=== PATIENT | female | born 1960 | race Caucasian/White ===

== ENCOUNTER → 2019-01-16 | Outpatient (CLI) | payer OTHER ==
--- NOTE | 2019-01-16 16:06 | RAD ---
Indication: Postmenopausal screening for osteoporosis. Follow-up study. COMPARISON: March 16, 2010. Bone Density: -BMD: (g/cm2) - AP Spine Total (L1-L4).......... 0.660. - Total right Hip................. 0.773. T-Score: - AP Spine Total (L1-L4)......... -4.3. - Total right Hip................. -1.9. Z-Score: - AP Spine Total (L1-L4).......... -2.9. - Total right Hip................. -0.8. World Health Organization criteria for BMD interpretation classify patients as Normal (T-score at or above -1.0), Osteopenic (T-score between -1.0 and -2.5), or Osteoporotic (T-score at or below -2.5). Impression: 1. AP Spine Total L1-L4--- osteoporosis. Since the previous study, there has been a decrease in the BMD of approximately 22%. 2. Total left Hip--- normal. Since the previous study, there has been a decrease in the BMD of approximately 12%. Electronically signed by: Paddy Cramer MD (01/16/2019 4:03 PM) [email or web address]
== END | disposition home or self-care (01) ==
LOC: DXRAD 11:23
DX: M81.0 Age-related osteoporosis without current pathological fracture (principal); N95.9 Unspecified menopausal and perimenopausal disorder; Z82.62 Family history of osteoporosis
CPT/HCPCS: 77080

== ENCOUNTER → 2021-04-13 | Outpatient (CLI) | payer OTHER ==
--- NOTE | 2021-04-13 16:40 | RAD ---
INDICATION: Screening for osteopenia/osteoporosis. Postmenopausal follow-up COMPARISON: January 16, 2019 TECHNIQUE: Bone densitometry was performed through the lumbar spine and proximal femur. IMPRESSION: Lumbar Spine: BMD: 0.66 T-Score: -4.2 Range: Osteoporotic. Decreased by 21 percent from baseline in 2009 and slightly increased by approxim ately 3-4 percent from most recent prior from January 2019. Proximal Femur: BMD: 0.73 T-Score: -1.7 Range: Osteopenic. Decreased by 8 percent from baseline and increased by 2 percent from 2019 World Health Organization Criteria for Bone Density: T-Score: > -1.0: Normal Range < -1.0 to -2.5: Osteopenic Range < -2.5: Osteoporotic Range Electronically signed by: Alejandro Faustin MD (04/13/2021 4:38 PM) [id number]
== END ==
LOC: DXRAD 11:15
PROVIDERS: ATTEND Family Medicine
DX: M81.0 Age-related osteoporosis without current pathological fracture (principal)
CPT/HCPCS: 77080